=== PATIENT | male | born 1940 | race Caucasian/White ===

== ENCOUNTER 2021-11-18 14:51 | Emergency (ER) | payer MEDICARE, OTHER ==
[2021-11-19] MEDS ORDERED: LANS30CA93 PO (00:03)
[2021-11-19] MEDS ORDERED: FAMO20TA5 PO (00:03)
[2021-11-19] MEDS ORDERED: LOSA100T45 PO (00:03)
[2021-11-19] MEDS ORDERED: AMLO1TAB24 PO (00:03)
[2021-11-19] MEDS ORDERED: ATOR1TAB21 PO (00:03)
[2021-11-19] MEDS ORDERED: ACET-897 PO (00:09)
== END 2021-11-18 15:40 | disposition left against medical advice (07) ==
LOC: M ED 15:33
DX: Z53.21 Procedure and treatment not carried out due to patient leaving prior to being seen by health care provider (principal)

== ENCOUNTER 2021-11-18 15:24 | Inpatient (IN) | payer MEDICARE, OTHER ==
[~2021-11-18] VITALS: Ht 195.6 cm; Wt 113.9 kg
[2021-11-18] MEDS ORDERED: NS 500 ML IV ONE (16:45)
[2021-11-18] MEDS ORDERED: NS 1,000 ML IV ONE (16:55)
[2021-11-18] MEDS ORDERED: ONDANSETRON 4MG/2ML VIAL IV ONE (18:10)
[2021-11-18] MEDS ORDERED: fentaNYL 100 MCG/2 ML INJECTION IV ONE (18:10)
[2021-11-18 18:20] LABS: BASO # 0.1 10^3/uL (0.0-0.2); BASO % 0.3 % (0.0-1.0); EOS # 0.2 10^3/uL (0.0-0.5); HEMATOCRIT 43.8 % (42.0-52.0); LYMPH # 0.9 10^3/uL (1.5-5.0); MEAN CORPUSCULAR HEMOGLOBIN 28.4 pg (27.0-33.0); MEAN CORPUSCULAR VOLUME 88.8 fl (80.0-96.0); MONO # 1.3 10^3/uL (0.0-0.8); MONO % 8.6 % (2.0-8.0); NEUTROPHILS # 12.2 10^3/uL (1.5-8.5); NEUTROPHILS % 83.6 % (36.0-66.0); PLATELET COUNT, AUTOMATED 263 10^3/uL (150-450); RED BLOOD COUNT 4.93 10^6/uL (4.30-6.10); WHITE BLOOD COUNT 14.6 10^3/uL (4.0-10.0)
[2021-11-18] MEDS ORDERED: ISOVUE-370 76% 100ML VIAL As Ordered ONE (18:31)
[2021-11-18 18:37] LABS: INR 1.02; PROTHROMBIN TIME 13.8 SECONDS (12.7-14.5)
[2021-11-18 18:37] LABS: ALBUMIN 3.5 GM/DL (3.2-5.2); ALT/SGPT 29 U/L (12-78); AMYLASE 41 U/L (25-115); BILIRUBIN,DIRECT 0.2 MG/DL (0.0-0.2); BILIRUBIN,TOTAL 0.8 MG/DL (0.2-1.0); BLOOD UREA NITROGEN 20 MG/DL (7-18); CALCIUM LEVEL 9.3 MG/DL (8.8-10.2); CARBON DIOXIDE LEVEL 29 MEQ/L (21-32); CHLORIDE LEVEL 103 MEQ/L (98-107); CREATININE FOR GFR 1.06 MG/DL (0.70-1.30); GLOMERULAR FILTRATION RATE > 60.0 (>42); GLUCOSE, FASTING 133 MG/DL (70-100); LIPASE 95 U/L (73-393); POTASSIUM SERUM 4.3 MEQ/L (3.5-5.1); SODIUM LEVEL 138 MEQ/L (136-145)
[2021-11-18 18:38] LABS: PARTIAL THROMBOPLASTIN TIME 33.6 SECONDS (25.9-37.0)
[2021-11-18 18:48] LABS: RSV AMPLIFICATION NEGATIVE (NEGATIVE)
[2021-11-18] MEDS ORDERED: MORPHINE 2 MG/ML 1ML VIAL IV ONE (20:40)
[2021-11-18] MEDS ORDERED: GI COCKTAIL 50ML BTL(HYOSCYAMINE/MAALOX/LIDOCAINE VISCOUS)(1:3:1) PO ONE (21:55)
[2021-11-18] MEDS ORDERED: MORPHINE 4 MG/ML 1ML VIAL/SYRINGE IV ONE (21:55)
[2021-11-18] MEDS ORDERED: CIPROFLOXACIN 400 MG in IV 1 EA IV ONE (22:55)
[2021-11-18] MEDS ORDERED: MORPHINE 2 MG/ML 1ML VIAL IV PRN (23:00)
[2021-11-18] MEDS ORDERED: PROCHLORPERAZINE 10MG/2ML VIAL (J0780 PER 1) IV PRN (23:00)
[2021-11-19] MEDS ORDERED: FAMO20TA5 PO (00:03)
[2021-11-19] MEDS ORDERED: AMLO1TAB24 PO (00:03)
[2021-11-19] MEDS ORDERED: ATOR1TAB21 PO (00:03)
[2021-11-19] MEDS ORDERED: LOSA100T45 PO (00:03)
[2021-11-19] MEDS ORDERED: LANS30CA93 PO (00:03)
[2021-11-19] MEDS ORDERED: ACET-897 PO (00:09)
[2021-11-19] MEDS ORDERED: HOME MED LIST COMPLETE! XX SCH (00:10)
[2021-11-19 01:20] VITALS: BP 157/78
[2021-11-19] MEDS: HYDROMORPHONE HCL 0.5 MG/ 0.5 ML SYRINGE (J1170 PER 1) IV PRN ×2 (02:13→06:51)
[2021-11-19] MEDS: NS 1,000 ML IV SCH ×2 (02:13→12:49)
[2021-11-19 06:00] VITALS: BP 126/69
[2021-11-19 06:23] LABS: HEMATOCRIT 40.8 % (42.0-52.0); HEMOGLOBIN 13.3 g/dl (13.5-17.5); MEAN CORPUSCULAR HEMOGLOBIN 28.7 pg (27.0-33.0); MEAN CORPUSCULAR HGB CONC 32.6 g/dl (32.0-36.5); MEAN CORPUSCULAR VOLUME 88.1 fl (80.0-96.0); PLATELET COUNT, AUTOMATED 248 10^3/uL (150-450); RED BLOOD COUNT 4.63 10^6/uL (4.30-6.10); WHITE BLOOD COUNT 17.7 10^3/uL (4.0-10.0)
[2021-11-19 06:57] LABS: ALBUMIN 2.9 GM/DL (3.2-5.2); ALT/SGPT 23 U/L (12-78); BLOOD UREA NITROGEN 16 MG/DL (7-18); CALCIUM LEVEL 8.4 MG/DL (8.8-10.2); CARBON DIOXIDE LEVEL 27 MEQ/L (21-32); CHLORIDE LEVEL 103 MEQ/L (98-107); CREATININE FOR GFR 0.99 MG/DL (0.70-1.30); GLOMERULAR FILTRATION RATE > 60.0 (>42); GLUCOSE, FASTING 137 MG/DL (70-100); MAGNESIUM LEVEL 2.1 MG/DL (1.8-2.4); POTASSIUM SERUM 4.2 MEQ/L (3.5-5.1); SODIUM LEVEL 136 MEQ/L (136-145); TOTAL PROTEIN 6.4 GM/DL (6.4-8.2)
[2021-11-19] MEDS ORDERED: PANTOPRAZOLE 40MG VIAL IV SCH (09:00)
[2021-11-19] MEDS: PIPERACILLIN/TAZOBACTAM SOD 3.375 GM in D5W MINI-BAG PLUS 50 ML IV SCH ×3 (09:06→20:35)
[2021-11-19] MEDS: amLODIPine 5 MG TAB PO SCH (10:22)
[2021-11-19] MEDS: LOSARTAN 50MG TABLET PO SCH (10:23)
[2021-11-19] MEDS: MORPHINE 2 MG/ML 1ML VIAL IV PRN ×2 (10:24→16:18)
[2021-11-19 14:00] VITALS: BP 127/69
[2021-11-19 14:26] LABS: HEMATOCRIT 38.6 % (42.0-52.0); HEMOGLOBIN 12.6 g/dl (13.5-17.5)
[2021-11-19] MEDS: D5W/0.9% SODIUM CHLORIDE 1,000 ML IV SCH ×2 (14:50→23:43)
[2021-11-19] MEDS: FLUTICASONE PROP 0.05% NASAL SPRAY 16 GM (FLONASE) NARES SCH ×2 (14:51→20:34)
[2021-11-19] MEDS ORDERED: ISOVUE-370 76% 100ML VIAL As Ordered ONE (18:47)
[2021-11-19] MEDS: ATORVASTATIN 20 MG TAB PO SCH (20:34)
[2021-11-19] MEDS: PANTOPRAZOLE 40MG VIAL IV SCH (20:34)
[2021-11-19] MEDS: ACETAMINOPHEN TAB 650MG DOSE (2X325MG) PO PRN (20:34)
[2021-11-19] MEDS: DICYCLOMINE 10 MG CAP PO PRN (20:34)
[2021-11-19 21:54] LABS: HEMATOCRIT 37.3 % (42.0-52.0)
[2021-11-19 22:00] VITALS: BP 125/69
[2021-11-20] MEDS: PIPERACILLIN/TAZOBACTAM SOD 3.375 GM in D5W MINI-BAG PLUS 50 ML IV SCH ×4 (02:09→20:37)
[2021-11-20] MEDS: D5W/0.9% SODIUM CHLORIDE 1,000 ML IV SCH ×3 (05:41→16:41)
[2021-11-20 06:00] VITALS: BP 104/60
[2021-11-20 06:11] LABS: HEMATOCRIT 36.8 % (42.0-52.0); HEMOGLOBIN 11.8 g/dl (13.5-17.5); MEAN CORPUSCULAR HEMOGLOBIN 29.1 pg (27.0-33.0); MEAN CORPUSCULAR HGB CONC 32.1 g/dl (32.0-36.5); MEAN CORPUSCULAR VOLUME 90.9 fl (80.0-96.0); PLATELET COUNT, AUTOMATED 198 10^3/uL (150-450); RED BLOOD COUNT 4.05 10^6/uL (4.30-6.10); WHITE BLOOD COUNT 18.2 10^3/uL (4.0-10.0)
[2021-11-20 06:41] LABS: BLOOD UREA NITROGEN 10 MG/DL (7-18); CALCIUM LEVEL 8.2 MG/DL (8.8-10.2); CARBON DIOXIDE LEVEL 24 MEQ/L (21-32); CHLORIDE LEVEL 105 MEQ/L (98-107); CREATININE FOR GFR 0.97 MG/DL (0.70-1.30); GLOMERULAR FILTRATION RATE > 60.0 (>42); GLUCOSE, FASTING 139 MG/DL (70-100); MAGNESIUM LEVEL 2.3 MG/DL (1.8-2.4); POTASSIUM SERUM 4.2 MEQ/L (3.5-5.1); SODIUM LEVEL 137 MEQ/L (136-145)
[2021-11-20] MEDS: amLODIPine 5 MG TAB PO SCH (09:00)
[2021-11-20] MEDS: LOSARTAN 50MG TABLET PO SCH (09:00)
[2021-11-20] MEDS: FLUTICASONE PROP 0.05% NASAL SPRAY 16 GM (FLONASE) NARES SCH ×2 (09:00→20:38)
[2021-11-20] MEDS: PANTOPRAZOLE 40MG VIAL IV SCH (09:12)
[2021-11-20] MEDS: MORPHINE 2 MG/ML 1ML VIAL IV PRN ×2 (09:33→14:02)
[2021-11-20 12:38] LABS: HEMATOCRIT 35.8 % (42.0-52.0); HEMOGLOBIN 11.3 g/dl (13.5-17.5)
[2021-11-20 14:00] VITALS: BP 108/60
[2021-11-20] MEDS: DICYCLOMINE 10 MG CAP PO PRN (17:57)
[2021-11-20] MEDS: ACETAMINOPHEN TAB 650MG DOSE (2X325MG) PO PRN (17:58)
[2021-11-20] MEDS: PANTOPRAZOLE 40MG TAB (PROTONIX) PO SCH (20:37)
[2021-11-20] MEDS: ATORVASTATIN 20 MG TAB PO SCH (20:38)
[2021-11-20 22:01] VITALS: BP 105/51
[2021-11-20 22:43] VITALS: BP 120/66
[2021-11-21] MEDS: DICYCLOMINE 10 MG CAP PO PRN ×2 (00:16→08:00)
[2021-11-21] MEDS: ACETAMINOPHEN TAB 650MG DOSE (2X325MG) PO PRN ×4 (00:22→22:34)
[2021-11-21] MEDS: PIPERACILLIN/TAZOBACTAM SOD 3.375 GM in D5W MINI-BAG PLUS 50 ML IV SCH ×4 (02:16→20:55)
[2021-11-21 05:54] VITALS: BP 136/72
[2021-11-21 06:50] LABS: HEMATOCRIT 35.2 % (42.0-52.0); HEMOGLOBIN 11.3 g/dl (13.5-17.5); MEAN CORPUSCULAR HEMOGLOBIN 29.2 pg (27.0-33.0); MEAN CORPUSCULAR HGB CONC 32.1 g/dl (32.0-36.5); PLATELET COUNT, AUTOMATED 186 10^3/uL (150-450); RED BLOOD COUNT 3.87 10^6/uL (4.30-6.10); WHITE BLOOD COUNT 18.9 10^3/uL (4.0-10.0)
[2021-11-21 07:01] LABS: BLOOD UREA NITROGEN 8 MG/DL (7-18); CALCIUM LEVEL 8.3 MG/DL (8.8-10.2); CARBON DIOXIDE LEVEL 25 MEQ/L (21-32); CHLORIDE LEVEL 106 MEQ/L (98-107); CREATININE FOR GFR 0.86 MG/DL (0.70-1.30); GLOMERULAR FILTRATION RATE > 60.0 (>42); GLUCOSE, FASTING 108 MG/DL (70-100); MAGNESIUM LEVEL 2.2 MG/DL (1.8-2.4); SODIUM LEVEL 140 MEQ/L (136-145)
[2021-11-21 07:13] VITALS: BP 122/66
[2021-11-21] MEDS: MORPHINE 2 MG/ML 1ML VIAL IV PRN ×3 (07:22→20:56)
[2021-11-21] MEDS: amLODIPine 5 MG TAB PO SCH (08:10)
[2021-11-21] MEDS: LOSARTAN 50MG TABLET PO SCH (08:10)
[2021-11-21] MEDS: PANTOPRAZOLE 40MG TAB (PROTONIX) PO SCH ×2 (08:32→20:54)
[2021-11-21] MEDS: FLUTICASONE PROP 0.05% NASAL SPRAY 16 GM (FLONASE) NARES SCH ×2 (08:33→20:54)
[2021-11-21] MEDS ORDERED: MORPHINE 2 MG/ML 1ML VIAL IV ONE (08:45)
[2021-11-21 11:13] LABS: HEMATOCRIT 35.1 % (42.0-52.0); HEMOGLOBIN 11.3 g/dl (13.5-17.5)
[2021-11-21] MEDS ORDERED: NS 1,000 ML IV SCH (16:15)
[2021-11-21 17:34] LABS: HEMATOCRIT 35.9 % (42.0-52.0); HEMOGLOBIN 11.9 g/dl (13.5-17.5)
[2021-11-21] MEDS: ATORVASTATIN 20 MG TAB PO SCH (20:54)
[2021-11-21 22:00] VITALS: BP 138/72
[2021-11-21 23:00] LABS: HEMATOCRIT 33.9 % (42.0-52.0); HEMOGLOBIN 11.2 g/dl (13.5-17.5)
[2021-11-22] MEDS: PIPERACILLIN/TAZOBACTAM SOD 3.375 GM in D5W MINI-BAG PLUS 50 ML IV SCH ×4 (01:57→20:24)
[2021-11-22 05:44] LABS: HEMATOCRIT 33.8 % (42.0-52.0); HEMOGLOBIN 11.1 g/dl (13.5-17.5); MEAN CORPUSCULAR HEMOGLOBIN 29.1 pg (27.0-33.0); MEAN CORPUSCULAR HGB CONC 32.8 g/dl (32.0-36.5); MEAN CORPUSCULAR VOLUME 88.5 fl (80.0-96.0); PLATELET COUNT, AUTOMATED 200 10^3/uL (150-450); RED BLOOD COUNT 3.82 10^6/uL (4.30-6.10); WHITE BLOOD COUNT 16.4 10^3/uL (4.0-10.0)
[2021-11-22 06:00] VITALS: BP 114/52
[2021-11-22 06:06] LABS: BLOOD UREA NITROGEN 9 MG/DL (7-18); CARBON DIOXIDE LEVEL 27 MEQ/L (21-32); CHLORIDE LEVEL 104 MEQ/L (98-107); CREATININE FOR GFR 0.79 MG/DL (0.70-1.30); GLOMERULAR FILTRATION RATE > 60.0 (>42); GLUCOSE, FASTING 117 MG/DL (70-100); MAGNESIUM LEVEL 2.2 MG/DL (1.8-2.4); POTASSIUM SERUM 3.8 MEQ/L (3.5-5.1); SODIUM LEVEL 137 MEQ/L (136-145)
[2021-11-22] MEDS ORDERED: MORPHINE 2 MG/ML 1ML VIAL IV PRN (08:10)
[2021-11-22] MEDS: PANTOPRAZOLE 40MG TAB (PROTONIX) PO SCH ×2 (08:40→20:24)
[2021-11-22] MEDS: LOSARTAN 50MG TABLET PO SCH ×2 (08:40→10:11)
[2021-11-22] MEDS: amLODIPine 5 MG TAB PO SCH ×2 (08:40→10:11)
[2021-11-22] MEDS: MORPHINE 4 MG/ML 1ML VIAL/SYRINGE IV PRN ×2 (08:44→13:10)
[2021-11-22] MEDS ORDERED: MORPHINE 4 MG/ML 1ML VIAL/SYRINGE IV PRN (09:00)
[2021-11-22] MEDS: DICYCLOMINE 10 MG CAP PO PRN (09:01)
[2021-11-22] MEDS: FLUTICASONE PROP 0.05% NASAL SPRAY 16 GM (FLONASE) NARES SCH ×2 (09:07→20:24)
[2021-11-22 09:19] VITALS: BP 139/76
[2021-11-22] MEDS: ACETAMINOPHEN TAB 650MG DOSE (2X325MG) PO PRN (13:04)
[2021-11-22 14:00] VITALS: BP 141/86
[2021-11-22] MEDS ORDERED: guaiFENesin SYRUP 200MG 10ML UDC PO ONE (16:00)
[2021-11-22] MEDS: NORCO, ANEXSIA 5/325MG TABLET (HYDROcodone/ACETAMINOPHEN) PO PRN (17:36)
[2021-11-22] MEDS: ATORVASTATIN 20 MG TAB PO SCH (20:24)
[2021-11-22] MEDS: guaiFENesin DM LIQ 10ML UD PO PRN (21:49)
[2021-11-22 22:00] VITALS: BP 144/79
[2021-11-23] MEDS: PIPERACILLIN/TAZOBACTAM SOD 3.375 GM in D5W MINI-BAG PLUS 50 ML IV SCH ×2 (02:16→09:30)
[2021-11-23] MEDS: guaiFENesin DM LIQ 10ML UD PO PRN (02:16)
[2021-11-23 06:00] VITALS: BP 138/72
[2021-11-23 06:39] LABS: HEMATOCRIT 33.3 % (42.0-52.0); HEMOGLOBIN 10.7 g/dl (13.5-17.5); MEAN CORPUSCULAR HEMOGLOBIN 28.2 pg (27.0-33.0); MEAN CORPUSCULAR HGB CONC 32.1 g/dl (32.0-36.5); MEAN CORPUSCULAR VOLUME 87.6 fl (80.0-96.0); PLATELET COUNT, AUTOMATED 212 10^3/uL (150-450); WHITE BLOOD COUNT 14.4 10^3/uL (4.0-10.0)
[2021-11-23 07:02] LABS: BLOOD UREA NITROGEN 10 MG/DL (7-18); CALCIUM LEVEL 7.9 MG/DL (8.8-10.2); CARBON DIOXIDE LEVEL 26 MEQ/L (21-32); CHLORIDE LEVEL 102 MEQ/L (98-107); CREATININE FOR GFR 0.91 MG/DL (0.70-1.30); GLOMERULAR FILTRATION RATE > 60.0 (>42); GLUCOSE, FASTING 111 MG/DL (70-100); MAGNESIUM LEVEL 2.1 MG/DL (1.8-2.4); POTASSIUM SERUM 3.5 MEQ/L (3.5-5.1); SODIUM LEVEL 135 MEQ/L (136-145)
[2021-11-23] MEDS ORDERED: CEFDINIR 300 MG CAP (OMNICEF) PO SCH (09:00)
[2021-11-23] MEDS: PANTOPRAZOLE 40MG TAB (PROTONIX) PO SCH (09:23)
[2021-11-23] MEDS: FLUTICASONE PROP 0.05% NASAL SPRAY 16 GM (FLONASE) NARES SCH (09:24)
[2021-11-23] MEDS: NORCO, ANEXSIA 5/325MG TABLET (HYDROcodone/ACETAMINOPHEN) PO PRN (09:24)
[2021-11-23 09:25] VITALS: BP 126/68
[2021-11-23] MEDS: amLODIPine 5 MG TAB PO SCH (09:25)
[2021-11-23] MEDS: LOSARTAN 50MG TABLET PO SCH (09:25)
[2021-11-23] MEDS: DICYCLOMINE 10 MG CAP PO PRN (09:26)
[2021-11-23] MEDS ORDERED: CEFD300CAP PO ×4 (13:40→15:41)
[2021-11-23] MEDS ORDERED: HYDR-3715 PO ×5 (13:40→15:40)
[2021-11-23] MEDS ORDERED: METR-265 PO ×4 (13:40→15:41)
[2021-11-23] MEDS ORDERED: metroNIDAZOLE (FLAGYL) 500MG TABLET PO SCH (14:00)
== END 2021-11-23 15:40 | disposition home or self-care (01) | DRG 872 ==
LOC: M ED 15:24 → M ED INP 22:56 → ENRESERV 11-19 00:13 → M MS5PR 11-19 01:35
PROVIDERS: ADMIT Internal Medicine; ATTEND Internal Medicine
DX: A41.9 Sepsis, unspecified organism (principal); K62.5 Hemorrhage of anus and rectum; D62 Acute posthemorrhagic anemia; E87.2 Acidosis; K55.9 Vascular disorder of intestine, unspecified; K21.9 Gastro-esophageal reflux disease without esophagitis; H26.9 Unspecified cataract; I10 Essential (primary) hypertension; K64.8 Other hemorrhoids; K59.00 Constipation, unspecified; R91.8 Other nonspecific abnormal finding of lung field; M54.59 Other low back pain; Z87.891 Personal history of nicotine dependence; Z79.899 Other long term (current) drug therapy